=== PATIENT | female | born 1960 | race Caucasian/White ===

== ENCOUNTER → 2018-12-10 11:57 | Outpatient (CLI) | payer BC, SELFPAY ==
[2018-12-10 08:13] VITALS: BMI 30.3
[2018-12-10 12:42] LABS: Absolute Lymphocyte Count 3.07 X10^3/uL (0.83-4.51); Absolute Neutrophil Count 3.8 X10^3/uL (2.0-7.7); Basophil# 0.06 X10^3/uL; Basophil% 0.8 % (0-1); Eosinophil# 0.12 X10^3/uL; Eosinophils% 1.6 % (0-5); Hematocrit 47.8 % (37-47); Hemoglobin 15.6 g/dL (12.0-15.0); Lymphocyte # 3.07 X10^3/ul (4.0); Lymphocyte % 39.9 % (19-41); Mean Corp Hgb Conc 32.6 g/dL (32-36); Mean Corpuscular Hgb 29.1 pg (27.0-32.0); Mean Corpuscular Volume 89.2 fL (81-99); Mean Platelet Vol. 10.5 fl (6.2-12.0); Monocyte# 0.57 X10^3/uL; Monocyte% 7.4 % (0-10); NRBC Flagged by Analyzer 0 % (0-5); Neutrophil # 3.84 X10^3/uL (2.7-7.7); Neutrophil % 49.9 % (47-70); Platelet Count 252 K/mm3 (150-450); RBC Distribution Width CV 14.3 % (11.6-14.6); RBC Distribution Width SD 46.1 fl (35.1-43.9); Red Blood Count 5.36 M/mm3 (4.2-5.4); White Blood Count 7.7 K/mm3 (4.4-11.0)
[2018-12-13 12:45] LABS: Immunoglobulin E 108 IU/mL (6-495)
[2018-12-14 03:06] LABS: Alternaria tenuis <0.10 kU/L (Class 0); Ash, White <0.10 kU/L (Class 0); Aspergillus fumigatus <0.10 kU/L (Class 0); Bermuda Grass <0.10 kU/L (Class 0); Birch <0.10 kU/L (Class 0); Black Walnut <0.10 kU/L (Class 0); Cat Hair / Dander,Stand <0.10 kU/L (Class 0); Cedar, Mountain <0.10 kU/L (Class 0); Cladosporium herbarum <0.10 kU/L (Class 0); Cockroach, American <0.10 kU/L (Class 0); Cottonwood <0.10 kU/L (Class 0); D farinae Mite <0.10 kU/L (Class 0); D pteronyssinus <0.10 kU/L (Class 0); Dog Epithelia <0.10 kU/L (Class 0); Elm, American White <0.10 kU/L (Class 0); Immunoglobulin E 108 IU/mL (6-495); Maple/Box Elder <0.10 kU/L (Class 0); Mulberry, White <0.10 kU/L (Class 0); Oak, White <0.10 kU/L (Class 0); Pecan <0.10 kU/L (Class 0); Penicillium Notatum <0.10 kU/L (Class 0); Pigweed, Rough <0.10 kU/L (Class 0); Ragweed, Short/Common <0.10 kU/L (Class 0); Russian Thistle <0.10 kU/L (Class 0); Sheep Sorrel <0.10 kU/L (Class 0); Sycamore, American <0.10 kU/L (Class 0); Timothy Grass <0.10 kU/L (Class 0)
[2018-12-14 09:29] LABS: Mouse Urine <0.10 kU/L (Class 0)
== END ==
PROVIDERS: Family Provider Preventive Medicine Occupational Medicine; PCP Preventive Medicine Occupational Medicine; Referring Provider Internal Medicine Critical Care Medicine; Visit Provider Internal Medicine Critical Care Medicine
DX: R05 Cough (principal)
CPT/HCPCS: 36415; 82785; 85025; 86003

== ENCOUNTER → 2018-12-17 07:31 | Outpatient (CLI) | payer BC, SELFPAY ==
[2018-12-10 08:13] VITALS: BMI 30.3
--- NOTE | 2018-12-17 13:23 | PFTCOMP_ITS ---
COMPLETE PULMONARY FUNCTION TEST INTERPRETATION Brief HPI: Patient is a 58 year old female, currently under the care of Dr. Ortiz, who presents to [facility] for complete pulmonary function tests secondary to diagnosis of cough. Respiratory therapist reports good effort and reproducible results. Interpretation: Forced expiration spirometry shows no large airways obstructive ventilatory defect with an FEV1 of 90% predicted. There is no significant bronchodilator response by strict ATS criteria. Spirograms are of good quality and plateau normally. The respiratory flow volume loop shows a normal pattern. Lung volumes by body plethysmography show a decreased total lung capacity at 3.21 L, 61% predicted. All other lung volumes are reduced symmetrically. Diffusion capacity by carbon monoxide is at the lower limit of normal at 72% predicted. The airway resistance is normal. No previous pulmonary function tests were available for review. Impression: Moderate restrictive ventilatory defect with diffusion capacity at the lower limit of normal
--- NOTE | 2018-12-17 13:24 | PFTCOMP_ITS ---
COMPLETE PULMONARY FUNCTION TEST INTERPRETATION Brief HPI: Patient is a 61 year old female, currently under the care of myself, who presents to [facility] for complete pulmonary function tests secondary to diagnosis of SELINA. Respiratory therapist reports good effort and reproducible results. Interpretation: Forced expiration spirometry shows no large airways obstructive ventilatory defect with an FEV1 of 144% predicted. There is no significant bronchodilator response by strict ATS criteria. Spirograms are of good quality and plateau normally. The respiratory flow volume loop shows a normal pattern. Lung volumes by body plethysmography show an elevated total lung capacity at 3.29 L, 145% predicted. All other lung volumes are within normal limits. Diffusion capacity by carbon monoxide is normal at 73% predicted. The airway resistance is normal. Compared to previous pulmonary function tests from 06/26/2017, there is been a significant reduction in air trapping by 23%. Impression: Isolated hyperinflation, but otherwise normal pulmonary function tests.
== END ==
PROVIDERS: Family Provider Preventive Medicine Occupational Medicine; PCP Preventive Medicine Occupational Medicine; Referring Provider Internal Medicine Critical Care Medicine; Visit Provider Internal Medicine Critical Care Medicine
DX: R05 Cough (principal)
CPT/HCPCS: 94060; 94726; 94729

== ENCOUNTER → 2019-01-23 14:55 | Outpatient (CLI) | payer BC, SELFPAY ==
[2019-01-07 10:01] VITALS: BMI 30.3
--- NOTE | 2019-01-23 14:59 | ECHOD_ITS ---
Reason For Study: SOB Procedure This was a 2D Doppler, Color Flow transthoracic echocardiogram. Exam performed in department. Left Ventricle Normal LV size. The estimated ejection fraction is 60 %. No evidence for diastolic dysfunction. No regional wall motion abnormalities noted. Right Ventricle Normal RV size. Normal systolic function. Atria Normal left atrium. Normal right atrium. No doppler evidence for ASD. Mitral Valve There is no mitral valve stenosis. No mitral valve insufficiency. Tricuspid Valve There is no tricuspid stenosis. Unable to estimate RV systolic pressure due to inadequate jet, pulmonary artery pressure probably normal. Aortic Valve Trisinus/trileaflet aortic valve. There is no aortic stenosis. No aortic valve insufficiency. Pulmonic Valve There is no pulmonic valvular stenosis. No pulmonic valve insufficiency. Great Vessels Normal aortic root. Pericardium/Pleural No pericardial effusion. MMode/2D Measurements & Calculations LVIDd: 3.3 cm IVSd: 0.83 cm Ao root diam: 3.0 cm LVIDs: 1.9 cm LVPWd: 0.83 cm RVDd: 3.1 cm FS: 41.7 % LAV(MOD-bp): 35.9 ml LVAd ap4: 25.6 cm2 SV(MOD-sp4): 46.7 ml LAV(MOD-bp) Indexed: 17.6 ml/m2 EDV(MOD-sp4): 70.0 ml LAV(MOD-sp2): 45.3 ml EDV(sp4-el): 72.8 ml LAV(MOD-sp4): 28.0 ml LVAs ap4: 12.7 cm2 ESV(MOD-sp4): 23.3 ml ESV(sp4-el): 21.6 ml EF(MOD-sp4): 66.8 % EF(sp4-el): 70.3 % SV(sp4-el): 51.1 ml LA A4 area: 13.6 cm2 LA dimension(2D): 3.0 cm RA A4 area: 10.2 cm2 Doppler Measurements & Calculations MV E max christian: 73.3 cm/sec Lat Peak E' Christian: 8.3 cm/sec Med Peak E' Christian: 6.7 cm/sec MV A max christian: 88.1 cm/sec E/E' lat: 8.9 E/E' med: 11.0 MV E/A: 0.83 Ao V2 max: 147.4 cm/sec LV V1 max: 117.1 cm/sec PA V2 max: 100.9 cm/sec Ao max P.7 mmHg LV V1 max P.5 mmHg Interpretation Summary The estimated ejection fraction is 60 %. No evidence for diastolic dysfunction. Ordering Physician: Neena Varela Referring Physician: MD Pepe Henriquez Performed By: Rosalind Huntley TERESA
== END ==
PROVIDERS: Family Provider Preventive Medicine Occupational Medicine; PCP Preventive Medicine Occupational Medicine; Referring Provider Nurse Practitioner Acute Care; Visit Provider Nurse Practitioner Acute Care
DX: R06.02 Shortness of breath (principal)
CPT/HCPCS: 93306

== ENCOUNTER → 2019-04-12 15:41 | Outpatient (CLI) | payer BC, SELFPAY ==
[2019-04-12 14:25] VITALS: BMI 30.3
[2019-04-12 15:54] LABS: Absolute Lymphocyte Count 3.87 X10^3/uL (0.83-4.51); Absolute Neutrophil Count 10.3 X10^3/uL (2.0-7.7); Basophil# 0.07 X10^3/uL; Basophil% 0.5 % (0-1); Eosinophil# 0.09 X10^3/uL; Eosinophils% 0.6 % (0-5); Hematocrit 46.3 % (37-47); Lymphocyte # 3.87 X10^3/ul (4.0); Lymphocyte % 25.5 % (19-41); Mean Corp Hgb Conc 32.4 g/dL (32-36); Mean Corpuscular Volume 89.6 fL (81-99); Mean Platelet Vol. 11.2 fl (6.2-12.0); Monocyte# 0.82 X10^3/uL; Monocyte% 5.4 % (0-10); NRBC Flagged by Analyzer 0 % (0-5); Neutrophil # 10.27 X10^3/uL (2.7-7.7); Neutrophil % 67.7 % (47-70); Platelet Count 244 K/mm3 (150-450); RBC Distribution Width CV 14.3 % (11.6-14.6); Red Blood Count 5.17 M/mm3 (4.2-5.4); White Blood Count 15.2 K/mm3 (4.4-11.0)
[2019-04-12 16:07] LABS: AST(SGOT) 12 U/L (15-37); Alanine Aminotransfer ALT/SGPT 23 U/L (13-56); Albumin, Serum 3.6 g/dL (3.2-5.0); Alkaline Phosphatase 102 U/L (45-117); Anion Gap 3 (5-15); BUN 20 mg/dL (7-18); BUN/Creat Ratio 19.4 RATIO (10-20); Calcium,Total 8.9 mg/dL (8.5-10.1); Chloride 108 mmol/L (98-107); Cholesterol 203 mg/dL (200); Creatinine, Serum 1.03 mg/dL (0.55-1.02); EST Glomerular Filtration Rate 58 mL/min (>60); Est Glom Filt Rate - Afr Amer 70 mL/min (>60); Globulin 3.7 g/dL (2.2-4.2); Glucose 82 mg/dL (74-106); High Density Lipoprotein 68 mg/dL; Potassium 3.8 mmol/L (3.5-5.1); Protein, Total 7.3 g/dL (6.4-8.2); Sodium Level 141 mmol/L (136-145); Triglycerides 147 mg/dL; Very Low Density Lipoprotein 29 mg/dL (5-40)
== END ==
PROVIDERS: Family Provider Preventive Medicine Occupational Medicine; PCP Preventive Medicine Occupational Medicine; Visit Provider Nurse Practitioner
DX: Z00.00 Encounter for general adult medical examination without abnormal findings (principal)
CPT/HCPCS: 80053; 80061; 85025

== ENCOUNTER → 2019-05-26 09:20 | Outpatient (CLI) | payer BC, SELFPAY ==
[2019-05-26 08:38] VITALS: BMI 34.5
--- NOTE | 2019-05-26 09:20 | RAD_ITS ---
STUDY: X-RAY - LUMBOSACRAL SPINE REASON FOR EXAM: Female, 59 years old. Lower extremity numbness for while now. TECHNIQUE: 7 view(s) of the lumbosacral spine were obtained. COMPARISON: 05/23/2013. 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 Normal lumbar lordosis. There is no substantial scoliosis. There is normal alignment of the vertebrae. No subluxation in the lateral flexion and extension positioning. Normal vertebral bodies and endplates. Normal disc space heights. Normal bilateral sacral ala, sacroiliac joints, and visualized sacrum. Normal visualized soft tissue structures. RAD/L/S Spine w Bend Min 6 Vw IMPRESSION: 1. 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 2. No acute fracture or acute osseous abnormality of the lumbar spine. 3. No subluxation in the alignment following lateral flexion and extension positioning. 4. No significant interval changes when compared to 05/23/2013. Electronically Signed: Ramos Nguyen MD at 14:57 EST , Service support ,
== END ==
PROVIDERS: PCP Preventive Medicine Occupational Medicine; Referring Provider Orthopaedic Surgery; Visit Provider Orthopaedic Surgery
DX: M79.604 Pain in right leg (principal)
CPT/HCPCS: 72114

== ENCOUNTER → 2019-12-01 15:15 | Outpatient (CLI) | payer BC, SELFPAY ==
[2019-12-01 07:52] VITALS: BMI 34.5
--- NOTE | 2019-12-01 15:24 | RAD_ITS ---
STUDY: X-RAY - PELVIS AND BILATERAL HIPS REASON FOR EXAM: Female, 59 years old. PAIN IN BOTH HIP JOINTS RADIATING LATERALLY. NO KNOWN INJURY. TECHNIQUE: AP view of the pelvis.? 2 views of the right hip, and 2 views of the left hip were obtained. COMPARISON: None. FINDINGS: There is a non-specific bowel gas pattern. Normal visualized soft tissue structures. Normal bilateral iliac wings, sacroiliac joints and visualized sacrum. Normal bilateral superior and inferior pubic rami. Normal pubic symphysis. Normal bilateral ischial tuberosities. Normal visualized right femoral head. Normal right acetabulum. There is mild articular joint space narrowing of the right hip. Normal visualized left femoral head. Normal left acetabulum. There is mild articular joint space narrowing of the left hip. RAD/Hips B/L min 2 views w/ Pelvis IMPRESSION: Mild arthrosis, and demonstrated fracture or suspicious osseous lesion Electronically Signed: Maverick Moe MD at 16:01 EDT , Service support ,
== END ==
PROVIDERS: PCP Preventive Medicine Occupational Medicine; Referring Provider Orthopaedic Surgery; Visit Provider Orthopaedic Surgery
DX: M25.551 Pain in right hip (principal); M25.552 Pain in left hip
CPT/HCPCS: 73521

== ENCOUNTER → 2019-12-23 10:08 | Outpatient (CLI) | payer BC, SELFPAY ==
[2019-12-01 07:52] VITALS: BMI 34.5
[2019-12-23 12:29] LABS: Absolute Lymphocyte Count 2.41 X10^3/uL (0.83-4.51); Absolute Neutrophil Count 4.4 X10^3/uL (2.0-7.7); Basophil# 0.04 X10^3/uL; Basophil% 0.5 % (0-1); Eosinophils% 1.4 % (0-5); Hematocrit 46.4 % (37-47); Hemoglobin 14.7 g/dL (12.0-15.0); Lymphocyte # 2.41 X10^3/ul (4.0); Lymphocyte % 32.7 % (19-41); Mean Corp Hgb Conc 31.7 g/dL (32-36); Mean Corpuscular Hgb 28.6 pg (27.0-32.0); Mean Corpuscular Volume 90.3 fL (81-99); Mean Platelet Vol. 10.9 fl (6.2-12.0); Monocyte# 0.46 X10^3/uL; Monocyte% 6.2 % (0-10); NRBC Flagged by Analyzer 0 % (0-5); Neutrophil # 4.36 X10^3/uL (2.7-7.7); Neutrophil % 59.1 % (47-70); Platelet Count 234 K/mm3 (150-450); RBC Distribution Width CV 15.6 % (11.6-14.6); RBC Distribution Width SD 52.1 fl (35.1-43.9); Red Blood Count 5.14 M/mm3 (4.2-5.4); White Blood Count 7.4 K/mm3 (4.4-11.0)
[2019-12-23 12:35] LABS: Erythrocyte Sedimentation Rate 6 mm/hr (0-30)
[2019-12-23 12:46] LABS: AST(SGOT) 16 U/L (15-37); Alanine Aminotransfer ALT/SGPT 32 U/L (13-56); Albumin, Serum 3.6 g/dL (3.2-5.0); Alkaline Phosphatase 136 U/L (45-117); Anion Gap 3 (5-15); BUN 15 mg/dL (7-18); BUN/Creat Ratio 16.8 RATIO (10-20); CRP 5.62 mg/L (0.0-3.0); Calcium,Total 8.9 mg/dL (8.5-10.1); Chloride 108 mmol/L (98-107); EST Glomerular Filtration Rate 68 mL/min (>60); Est Glom Filt Rate - Afr Amer 82 mL/min (>60); Globulin 3.7 g/dL (2.2-4.2); Glucose 82 mg/dL (74-106); Potassium 3.6 mmol/L (3.5-5.1); Protein, Total 7.3 g/dL (6.4-8.2); Rheumatoid Factor < 10.0 IU/mL (<15); Sodium Level 141 mmol/L (136-145)
[2019-12-23 13:14] LABS: Hepatitis B Surface Antibody Non-Reactive; Hepatitis B Surface Antigen Non-Reactive (Nonreactive); Hepatitis C Antibody Non-Reactive (Nonreactive)
[2019-12-24 15:35] LABS: ANTINUCLEAR ANTIBODIES DIRECT Negative (Negative)
[2019-12-25 05:34] LABS: CCP IgG Antibodies 8 units (0-19); Hepatitis B Core AB IgM Negative (Negative)
== END ==
PROVIDERS: PCP Preventive Medicine Occupational Medicine; Referring Provider Internal Medicine Rheumatology; Visit Provider Internal Medicine Rheumatology
DX: M06.4 Inflammatory polyarthropathy (principal); M79.7 Fibromyalgia; G90.50 Complex regional pain syndrome I, unspecified
CPT/HCPCS: 36415; 80053; 85025; 85652; 86038; 86140; 86200; 86431; 86705; 86706; 86803; 87340

== ENCOUNTER → 2020-08-09 16:42 | Outpatient (CLI) | payer BC, SELFPAY ==
[2020-08-09 17:54] LABS: Absolute Lymphocyte Count 3.39 X10^3/uL (0.83-4.51); Absolute Neutrophil Count 7.1 X10^3/uL (2.0-7.7); Basophil# 0.08 X10^3/uL; Basophil% 0.7 % (0-1); Eosinophils% 1.7 % (0-5); Hematocrit 48.3 % (37-47); Hemoglobin 15.3 g/dL (12.0-15.0); Lymphocyte # 3.39 X10^3/ul (0.83-4.51); Lymphocyte % 29.4 % (19-41); Mean Corp Hgb Conc 31.7 g/dL (32-36); Mean Corpuscular Hgb 29.4 pg (27.0-32.0); Mean Corpuscular Volume 92.7 fL (81-99); Mean Platelet Vol. 10.7 fl (6.2-12.0); Monocyte# 0.72 X10^3/uL; Monocyte% 6.2 % (0-10); NRBC Flagged by Analyzer 0 % (0-5); Neutrophil % 61.7 % (47-70); Platelet Count 269 K/mm3 (150-450); RBC Distribution Width CV 14.2 % (11.6-14.6); RBC Distribution Width SD 48.6 fl (35.1-43.9); Red Blood Count 5.21 M/mm3 (4.2-5.4); White Blood Count 11.5 K/mm3 (4.4-11.0)
[2020-08-09 18:29] LABS: AST(SGOT) 12 U/L (15-37); Alanine Aminotransfer ALT/SGPT 29 U/L (13-56); Albumin, Serum 3.5 g/dL (3.2-5.0); Alkaline Phosphatase 118 U/L (45-117); Anion Gap 3 (5-15); BUN 21 mg/dL (7-18); BUN/Creat Ratio 21.2 RATIO (10-20); Calcium,Total 9.4 mg/dL (8.5-10.1); Chloride 108 mmol/L (98-107); Creatinine, Serum 0.99 mg/dL (0.55-1.02); EST Glomerular Filtration Rate 60 mL/min (>60); Est Glom Filt Rate - Afr Amer 73 mL/min (>60); Globulin 3.6 g/dL (2.2-4.2); Glucose 78 mg/dL (74-106); Protein, Total 7.1 g/dL (6.4-8.2); Sodium Level 141 mmol/L (136-145)
== END ==
PROVIDERS: PCP Family Medicine; Referring Provider Internal Medicine Rheumatology; Visit Provider Internal Medicine Rheumatology
DX: M06.4 Inflammatory polyarthropathy (principal); M79.7 Fibromyalgia; G90.50 Complex regional pain syndrome I, unspecified
CPT/HCPCS: 36415; 80053; 85025

== ENCOUNTER → 2021-01-06 10:09 | Outpatient (CLI) | payer BC, SELFPAY ==
[2021-01-06 10:49] LABS: Synovial Fld Mononuclear WBC % 93.6 %; Synovial Fld Polynuclear WBC % 6.4 %
[2021-01-06 10:59] LABS: AUTO B FLUID DILUENT BKGD CT WBC <0.1 RBC <0.01 (W<.1,R<.01); Appearance /Synovial Fluid Sl Cl (CLEAR); Color / Synovial Fluid Yellow (Pale Yellow); RBC /Synovial Fluid 65 /mm3 (0); Viscosity / Synovial Fluid Sl. Viscous (HIGH)
[2021-01-06 11:02] LABS: Source- Body Fluid SYNOVIAL
[2021-01-06 11:23] LABS: Lymph 37 %; Monocyte /Synovial Fluid 57 %; Neutrophil 1 % (0-25); Other Cell /Synovial Fluid 5 %
[2021-01-06 11:25] LABS: Body Fluid QC Type(s) BF1,BF2
[2021-01-07 13:18] LABS: Pathologist Comment Reviewed; Pathologist Review Reviewed
== END ==
PROVIDERS: PCP Family Medicine; Referring Provider Orthopaedic Surgery; Visit Provider Orthopaedic Surgery
DX: M25.462 Effusion, left knee (principal)
CPT/HCPCS: 89050; 89051; 89060

== ENCOUNTER 2024-12-01 10:00 | Outpatient (RCR) | payer MEDICARE, SELFPAY ==
--- NOTE | 2024-11-12 10:55 | HP.PTEVAL_ITS ---
Patient's Visit Information Visit Information Visit Information: ANNE LEWIS is a 64 year old F referred to Physical Therapy by Dr. Jose Hadley DO with a diagnosis of herniation intervertebral disc L45. Date of Evaluation: 11/12/24 Physical Therapist: Darren Christopher, DPT, OCS, CSCS Visit Plan Frequency: 2x /Week Duration: 4-6 Weeks Plan: 2x/week for 3-6 weeks...start in pool for ext bias Lb ROM, stretch HS and quads and core hip and LE strength , progress to I at her campground or community pool then consider manual based and LB therapy for ROM and strenght adn posture . IE HEP : eil or eis(shoulders) 10x every two hours, reviewed avoidance of FW bending and excessive sitting, posture, HO provided. Oriented to pool procedures. At recheck monitor LB ROM, trasnfers and gait, leg symptoms and back pain Subjective Subjective: Pain down both legs for a long time for years. Worsening lately so MRI and has HNP L45. Pain is big toe numbness and R>L quad numbness, pain medial upper legs. Central back pain. 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 Chronic pain. Knees are bone on bone and gets injections. This past weekend got a lot more pain in R knee upon waking and much worse so is breezy walking now. Standing 10 minutes makes legs worse. Sleep is not great but not abnormal for her chronically. Since Sunday had to wa lk with cane and today is first day she has not used it. Not employed, disability from RSD Spends day watching birds, goes to [facility]. Previous PT for RSD did not help. Feels best sitting. Bowel and bladder are OK. No spine doctor , not to pain mgmt in years. Wants to walk normal across street. Fell off pontoon and hip hurt and doctor may want to injeect that if it does not get better, fell due to glasses not proper. Pain back and legs: Pain Intensity (Out of 10): 5 Pain Intensity Range: 5 and 9 Objective Objective: Exits chair I but gingerly poorly trusting back and R LE. Walks slow but I back to PT room with R antalgia and weakness in hips. bed and chair trasnfers are slow but I. L/S AROM eext mod limtied and pian centrally, SB min limited, flexion mod limiteed without stretching in LB. reflexes 2/3 patella adn achills B Sensation LE at deficit anterior R leg and into ball strength knee ext 3+ with knee pain B, 4- knee flexion, hip 3+ abd and ext adn flexion B, ankles 4 B, no myotomal problems but kne OA makes ext painful. core strength 3+ abs and ext. HS and quads mod tight, knee aROM R -2 to 115, L 0-140. R limited by pain. - SLR, - slump repeated ext in lying seems to increase ROm, NE on leg symptoms but hurts shouldrs and wrists. EIS does similar without the UE problems. Balance/Special Test Scores Oswestry Low Back Score: 31 Goals Goal 1:: I appropriate pool and or home based ROM and strength ex to limit future problems with knees, back, hip and shouldrs. Goal Time Frame: 4-6 Weeks Goal 2:: Leg numbness and tingling and pain 3/10 at worst and 75% better, back pain manageable. Goal Time Frame: 4-6 Weeks Goal 3:: oswestry score 14 or better Goal Time Frame: 4-6 Weeks Goal 4:: sleep 4 hours without waking du to back pain or leg symptoms Goal Time Frame: 4-6 Weeks Goal 5:: walk back to PT without hesitancy or antalgia Goal Time Frame: 4-6 Weeks Rehabilitation Potential Physical Therapy Diagnosis: Limited back movement, leg symptoms and chronic poorly managed pain limiting funciton. Rehabilitation Potential: Questionable Anticipated Interventions Patient/Client Instruction: Educate patient on: Condition and Plan of Care For the Purpose of:: To decrease pain, To increase ROM, To improve nutrient delivery to tissue, To improve muscle performance and motor function and To increase tolerance to activity/condition/position Therapeutic Exercise to Include: Strength training, Postural training, Flexibilty training, In an aquatic setting, Passive ROM and Active ROM For the Purpose of:: To decrease pain, To increase ROM, To improve nutrient delivery to tissue, To improve muscle performance and motor function, To increase tolerance to activity/condition/position, To improve ability of physical actions for home/community/work/leisure and To improve gait and locomotor functions Manual Therapy Techniques to Include: Mobilization, Passive ROM and Soft tissue mobilization For the Purpose of:: To increase ROM and To improve nutrient delivery to tissue Text: Thank you for the opportunity to evaluate your patient. For Medicare and Medicare HMO plans, please review the plan of care and approve it. It will need to be FAXED BACK to us at [phone] for Medicare purposes. For Medicare only, by signing this I certify the plan of care. Please let me know if there are questions or concerns regarding this plan of care. Physician Signature: Date:
--- NOTE | 2024-12-01 10:36 | HP.PTREVAL ---
Re-Evaluation Intro: Dr. 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 Please see the progress note below for an update on the physical therapy plan of care! Subjective Subjective: Went back to ortho for knees and told her R ITB is tightening up and feels like a knot in lateral leg and knee. Wanted to drain knee adn give injections of of R knee. But had to check with adrenal doctor first. Will have eknee injections Sunday with Santana now. NCT in two days. That pain makes it hard to get out of house at 8/10 and is not sure what makes it worse. tolerated first time OK but worse at night. Hurts when left both times. X ray R knee was OK according to patient, unchanged. Objective Objective/Function: Tender R ITB and TFL moderately. Also c/o anterior and medial knee pain with movement and walking. Using cane in L UE to ambulate but does not wish to use walker. Slow and R antalgic. No focus on NS position. Able to bend and straighten R knee but winces often adn c/o L knee pain once I bring up that side but not to the intensity of R knee. Pt visibly frustrated with leg and back pain and lack of improvement.worsening today. Plan Plan Plan: Pt willing to stretch ITB at homee but wishes to hold on further sessions for back until see Eliud for ITB and NCT results this Sunday. She then will contact me to reassess and change plan or reschedule back in the pool once able to be consistent depending on how leg feels. Previous POC: 2x/week for 3-6 weeks...start in pool for ext bias Lb ROM, stretch HS and quads and core hip and LE strength , progress to I at her campground or community pool then consider manual based and LB therapy for ROM and strenght adn posture . At recheck monitor LB ROM, trasnfers and gait, leg symptoms and back pain Balance/Gait/Functional tests Balance/Special Test Scores Oswestry Low Back Score: 31 Goals Goals Goal 1:: I appropriate pool and or home based ROM and strength ex to limit future problems with knees, back, hip and shouldrs. Goal Time Frame: 4-6 Weeks Goal 2:: Leg numbness and tingling and pain 3/10 at worst and 75% better, back pain manageable. Goal Time Frame: 4-6 Weeks Goal 3:: oswestry score 14 or better Goal Time Frame: 4-6 Weeks Goal 4:: sleep 4 hours without waking du to back pain or leg symptoms Goal Time Frame: 4-6 Weeks Goal 5:: walk back to PT without hesitancy or antalgia Goal Time Frame: 4-6 Weeks Anticipated Interventions Anticipated Interventions Patient/Client Instruction: Educate patient on: Condition and Plan of Care For the Purpose of:: To decrease pain, To increase ROM, To improve nutrient delivery to tissue, To improve muscle performance and motor function and To increase tolerance to activity/condition/position Therapeutic Exercise to Include: Strength training, Postural training, Flexibilty training, In an aquatic setting, Passive ROM and Active ROM For the Purpose of:: To decrease pain, To increase ROM, To improve nutrient delivery to tissue, To improve muscle performance and motor function, To increase tolerance to activity/condition/position, To improve ability of physical actions for home/community/work/leisure and To improve gait and locomotor functions Manual Therapy Techniques to Include: Mobilization, Passive ROM and Soft tissue mobilization For the Purpose of:: To increase ROM and To improve nutrient delivery to tissue Re-Evaluation Ending Re-evaluation ending: Please do not hesitate to contact me at [phone] by phone or if you have questions or concerns regarding this new plan of care! Sincerely, Darren Christopher, DPT, OCS, CSCS
--- NOTE | 2025-01-29 16:29 | HP.PT.NRP ---
Patient Information Patient Information: ANNE LEWIS was seen in my office for initial evaluation on 11/12/24. The following Plan of Care was established for this patient: POC Established Initial Frequency: 2x /Week Initial Duration: 4-6 Weeks Anticipated Interventions Patient/Client Instruction: Educate patient on: Condition and Plan of Care For the Purpose of:: To decrease pain, To increase ROM, To improve nutrient delivery to tissue, To improve muscle performance and motor function and To increase tolerance to activity/condition/position Therapeutic Exercise to Include: Strength training, Postural training, Flexibilty training, In an aquatic setting, Passive ROM and Active ROM For the Purpose of:: To decrease pain, To increase ROM, To improve nutrient delivery to tissue, To improve muscle performance and motor function, To increase tolerance to activity/condition/position, To improve ability of physical actions for home/community/work/leisure and To improve gait and locomotor functions Manual Therapy Techniques to Include: Mobilization, Passive ROM and Soft tissue mobilization For the Purpose of:: To increase ROM and To improve nutrient delivery to tissue Last Seen Last Seen: This patient was last seen in our office 12/01/24. Pertinent comments regarding their Physical therapy will appear below: Pt seen 4 visits of POC but did not attend any further visits. At this point, I will discontinue du to nonattendance. At this point I will be discontinuing this patient from physical therapy. I would be happy to see this patient again in the future if found appropriate by the physician. Thank you! Darren Christopher, DPT, OCS, CSCS Balance/Gait/Functional tests Balance/Special Test Scores Oswestry Low Back Score: 31
== END 2024-12-01 19:00 | disposition home or self-care (01) ==
LOC: PT 10:00
PROVIDERS: Referring Provider Orthopaedic Surgery; Visit Provider Orthopaedic Surgery
DX: M51.26 Other intervertebral disc displacement, lumbar region (principal); M54.16 Radiculopathy, lumbar region
CPT/HCPCS: 97110; 97113; 97163; 97530

== ENCOUNTER → 2024-12-03 | Outpatient (CLI) | payer MEDICARE, SELFPAY ==
--- NOTE | 2024-12-03 14:38 | NEURO ---
NCS and/or EMG Patient Report Ordering Doctor: Jose Hadley DATE OF SERVICE: 12/03/24 Julia presents with complaints of pain and numbness in both lower limbs. Electrodiagnostic findings: Peroneal motor nerve demonstrates normal distal latency, amplitude and conduction velocity bilaterally. Tibial motor response within normal limits bilaterally. Normal tibial and peroneal F?waves. Normal H?reflex bilaterally. Prolonged sural latency is noted bilaterally. Normal superficial peroneal response bilaterally. Needle EMG testing was performed the lower limbs. All muscles tested showed no evidence of denervation with normal motor unit action potentials. Electrodiagnostic impression: This is an abnormal study. 1. 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 There is no electrodiagnostic evidence for peripheral polyneuropathy. 2. There is no electrodiagnostic evidence for lumbosacral radiculopathy. Multi Select Codes Neurology Neurology Interp Codes: 50325-94 Musc test done w/n test comp (interp) (2) and 16114-15 Nrv cndj test 9-10 studies (interp)
== END | disposition home or self-care (01) ==
LOC: PSN 12:05
PROVIDERS: Referring Provider Orthopaedic Surgery; Visit Provider Orthopaedic Surgery
DX: R20.0 Anesthesia of skin (principal); R29.898 Other symptoms and signs involving the musculoskeletal system
CPT/HCPCS: 95886; 95911